=== PATIENT | male | born 1995 | race Caucasian/White ===

== ENCOUNTER 2016-09-15 22:26 | Emergency (ER) | payer OTHER ==
[~2016-09-15] VITALS: Ht 167.6 cm; Wt 54.5 kg
[2016-09-15 22:45] VITALS: BP 132/82; PULSE 94; RESP 19; O2SAT 98
--- NOTE | 2016-09-15 23:13 | ED.REPORT ---
HPI-Seizure Date of Service Sep 15, 2016 ED Provider: Frankie Lowery MD 20 year old male with a history of substance abuse (heroin, methamphetamine), panic disorder, anxiety, and sleep disorder presents to the ER via EMS accompanied by his parents and brother due to a witnessed tonic clonic breakthrough seizure lasting approximately 1 minute. Mother reports that the patient came in the house after a hard day, sat down on the couch and promptly went rigid, convulsed, and was foaming at the mouth. He denies urinary incontinence, tongue biting, and any loss of bodily function since the episode. Patient has been on Zoloft for 2-3 months, but has been noncompliant for the past 5 days before resuming medication today. 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 Nursing Notes Stated Complaint: SEIZURE Chief Complaint: Seizure Nursing Notes Reviewed: Yes Allergies: Coded Allergies: No Known Allergies (Unverified , 09/15/16) General Time Seen by Provider: 22:55 Chief Complaint Chief Complaint: Seizure, generalized Hx Obtained From: Patient, Other family... (Mother) Arrived By: Ambulance Onset Occurred: Just prior to arrival Progression Since Onset: Rapidly improving Associated with: Reports: Confusion post-seizure, Denies: Tongue biting Pertinent Negative: Pt denies other symptoms Related History: Denies: Known seizure disorder Similar Sx Previous: No Risk-Seizure Sofy Coma Score > Age 5 Eye Opening: Open spontaneously (4) Verbal Response: Oriented (5) Motor Response: Obeys commands (6) Smyer Coma Score: 15 Past Medical History Past Medical History Anxiety Panic disorder Generalized sleep disorder Smoking History Unknown if Ever Smoker Social History Alcohol Use: In recovery Drug Use: Meth, Other (Heroin) Other Social History: Good social support Ambulatory Status Independent Review of Systems Review of Systems Note: +foaming at the mouth Neurologic: Reports: Confusion, Seizure, Denies: Bladder dysfunction, Bowel dysfunction, Focal weakness, Numbness, Weakness Complete sys rev & neg: except as marked. Physical Exam Initial Vital Signs Vital Signs (First) Date Time Temp Pulse Resp B/P Pulse Ox O2 Delivery O2 Flow Rate FiO2 09/15/16 22:45 94 19 132/82 98 Room Air Initial VS: Reviewed Head / Eyes: Atraumatic, Normocephalic, PERRL Abdomen / GI: Soft, Non-tender, No guarding, No rebound, No distention Extremities: Vascular intact, Neuro intact, No swelling, No tenderness Skin: Warm, Dry, No cyanosis Psychiatric: Mood/affect normal, Behavior normal, Normal thought content General/Constitutional: Awake, Alert, Well developed, Well nourished Neck: Supple, No meningismus, Full range of motion, No swelling, Non-tender Respiratory / Chest: Breath sounds NL, Breath sounds = bilat, No respiratory distress, No rales, No rhonchi, No wheezing Cardiovascular: Heart rate NL, Regular rhythm, Heart sounds NL, Peripheral circulation NL Neurologic: Oriented X3, Speech NL, No motor deficits, No sensory deficits, CN II - XII intact ENT: Atraumatic, Airway patent, Mucous membranes moist, Pharynx NL, Gums/ dentition NL Interpretation & Diagnostics Lab Results Interpretation Result Diagram: 09/15/16 2335 09/15/16 2335 Test 09/15/16 23:05 09/15/16 23:35 Urine Color Straw (YELLOW) Urine Appearance Hazy (CLEAR,HAZY) Urine pH 7.5 (5.0-8.0) Urine Specific [place] 1.015 (1.003-1.035) Urine Protein Negativemg/dL (NEG,TRACE) Urine Glucose (UA) Negativemg/dL (NEGATIVE) Urine Ketones Negativemg/dL (NEGATIVE) Urine Occult Blood Negative (NEGATIVE) Urine Nitrite Negative (NEGATIVE) Urine Bilirubin Negative (NEGATIVE) Urine Urobilinogen Normalmg/dL (NORMAL) Urine Leukocyte Esterase Negative (NEGATIVE) Urine RBC 0-2/hpf (0-2) Urine WBC 0-5/hpf (0-5) Urine Epithelial Cells Occasional/hpf (NONE-MOD) Urine Crystals Amorphous phosphates Urine Bacteria Few/hpf (NONE-FEW) Urine Hyaline Casts None/lpf (NONE) Urine Granular Casts None seen (NONE SEEN) Urine Waxy Casts None seen (NONE SEEN) Urine Red Blood Cell Casts None seen (NONE SEEN) Urine White Blood Cell Casts None seen (NONE SEEN) Urine Mucus None seen (None Seen) Urine Trichomonas None seen (NONE SEEN) Urine Yeast None (NONE SEEN) Urinalysis Comment None Urine Opiates Screen Negative Urine Methadone Screen Negative Urine Barbiturates Screen Negative Urine Amphetamines Screen Negative Urine Benzodiazepines Screen Negative Urine Cocaine Metabolite Screen Negative Urine Cannabinoids Screen Positive White Blood Count 14.2th/mm3 (3.8-10.1) Red Blood Count 4.38mil/mm3 (4.40-5.80) Hemoglobin 13.2g/dL (13.8-17.2) Hematocrit 37.7% (41.0-50.0) Mean Corpuscular Volume 86.1fL (81-100) Mean Corpuscular Hemoglobin 30.1pg (27.0-35.0) Mean Corpuscular Hemoglobin Concent 35.0% (32.0-37.0) Red Cell Distribution Width 12.4% (12.3-15.4) Platelet Count 251bil/L (150-400) Neutrophils (%) (Auto) 75.6% (40-74) Lymphocytes (%) (Auto) 17.8% (14-46) Monocytes (%) (Auto) 6.0% (4-12) Eosinophils (%) (Auto) 0.1% (0-5) Basophils (%) (Auto) 0.1% (0-3) Sodium Level 140mEq/L (134-144) Potassium Level 3.7mEq/L (3.5-5.2) Chloride Level 104mEq/L (97-108) Carbon Dioxide Level 19mmol/L (18-29) Blood Urea Nitrogen 13mg/dL (6-20) Creatinine 0.64mg/dL (0.76-1.27) Estimat Glomerular Filtration Rate 171mL/min (>59) Glucose Level 86mg/dL (60-99) Calcium Level 8.2mg/dL (8.5-10.1) Magnesium Level 1.9mg/dL (1.6-2.6) Total Bilirubin 0.2mg/dL (0.0-1.2) Aspartate Amino Transf (AST/SGOT) 39U/L (0-50) Alanine Aminotransferase (ALT/SGPT) 45U/L (0-44) Alkaline Phosphatase 65U/L (25-150) Total Protein 7.4g/dL (6.4-8.4) Albumin 4.2g/dL (3.4-5.0) Hold Rosenbaum Top Tube Received (Received) Alcohols < 10mg/dL (0-10) X-Ray Chest Interpretation Chest Xray Interpretation: Negative. View: Portable, 1 view Interpretation / Wet Read by: Wet read ED physician CT Head Interpretation CONCLUSION: Normal CT of the head without contrast. Electronically signed by Mathew Barton MD Study: Head CT no contrast Interpretation / Wet Read by: Interpret - Radiologist Re-Eval/Medical Decision Med Decision/Clinical Course 20-year-old with first onset seizure. He has a history of drug abuse but no recent use. His only acknowledged drug in use is THC. His CT is negative lites etc. are basically unremarkable. He is mildly hypocalcemic of no significance. An tox is only positive for THC. He is advised directly and in the presence of his parents that he must not drive until cleared. No indication for antiseizure meds after a single episode at this point. He needs an EEG and an MRI, to be arranged by his PCP. Prompt return if repetitive. Warned strongly against using street drugs, especially in the context. Discharged in stable condition. Re-Evaluation/Progress : Time of Eval: 00:43 Re-Evaluation/Progress Note: Discussed lab and imaging results and plan to discharge. Patient is amenable to the plan. Return precautions given. All other questions addressed. Counseled Regarding: Diagnosis, Lab results, Need for follow-up, When/why to return to ED Discharge & Departure Impression: Primary Impression: Seizure Disposition: Home Discharge Condition All VS Reviewed: Yes Condition: Stable Patient Instructions: Epilepsy (DC) Additional Instructions: You have had a single seizure episode that appears to be a tonic-clonic seizure , and may be epilepsy. We have not identified a specific cause. What we can tell you, is that your CT scan is negative, and your blood work is not remarkable. He will need an electroencephalogram. Do not drive until you have received a definitive diagnosis and/or cleared by neurology. He will need to establish with a primary care physician. Follow-up with neurology at the number provided to arrange a electroencephalogram. Return to the ER if you have recurrent seizures, loss of consciousness, numbness /tingling, chest pain, shortness of breath, or any other concerning symptoms. Referrals: [facility] Ruel,Jerson Raymond MD Scribe Attestation Portions of this note were transcribed by Dylan Altamirano. I, Dr. Lowery, personally performed the history, physical exam and medical decision-making; I reviewed and confirmed the accuracy of the information in the transcribed note. Signed by: Marino Vázquez. 09/16/2016 - 00:43 copies to: [facility]; Jerson Lipscomb MD, Christopher W MD Sep 15, 2016 23:13 DYLAN ALTAMIRANO Sep 15, 2016 23:26
[2016-09-15 23:22] LABS: APPEARANCE,URINE HAZY (CLEAR,HAZY); COLOR,URINE STRAW (YELLOW); OCCULT BLOOD,URINE NEGATIVE (NEGATIVE); PH,URINE 7.5 (5.0-8.0); UROBILINOGEN,URINE NORMAL (NORMAL)
[2016-09-15 23:46] LABS: BASOPHILS % (AUTO) 0.1 % (0-3); EOSINOPHILS % (AUTO) 0.1 % (0-5); Mean Corpuscular Hemoglobin 30.1 pg (27.0-35.0); Mean Corpuscular Volume 86.1 fL (81-100); NEUTROPHILS % (AUTO) 75.6 % (40-74); Platelet Count 251 bil/L (150-400)
[2016-09-16 00:08] VITALS: BP 122/67; PULSE 86; RESP 14; O2SAT 95
[2016-09-16 00:12] LABS: Magnesium 1.9 mg/dL (1.6-2.6)
[2016-09-16 01:01] VITALS: BP 115/63; PULSE 86; RESP 17; O2SAT 100
--- NOTE | 2016-09-16 08:16 | DRSVH ---
PROCEDURE: CT BRAIN WITHOUT CONTRAST ([id number]) INDICATIONS: new onset seizure TECHNIQUE: Noncontrast 4.5 mm thick angled axial sections acquired from the foramen magnum to the vertex, with c oronal reformats. COMPARISON: None. FINDINGS: Image quality: Excellent. CSF spaces: Basal cisterns are patent. No extra-axial fluid collections. Ventricles are normal in size and shape. Brain: No midline shift. No intracranial masses or hemorrhage. Palomo-white matter interface is norm al. Skull and face: Calvarium and visualized facial bones are intact, without suspicious lesions. Sinuses: Visualized sinuses and mastoids are clear. IMPRESSION: Negative head CT. No significant discrepancy with the machinist 2nd shift radiology preliminary report. Dictated by: Seferino Roque M.D. on 09/16/2016 at 8:15 Approved by: Seferino Roque M.D. on 09/16/2016 at 8:16
--- NOTE | 2016-09-16 08:43 | DRSVH ---
PROCEDURE: X-RAY CHEST ONE VIEW, PORTABLE ([id number]) INDICATIONS: seizure TECHNIQUE: One view of the chest was acquired. COMPARISON: None. FINDINGS: Surgical changes and devices: None. Lungs and pleura: No pleural effusions or pneumothorax. Lungs are clear. Mediastinum: Mediastinal contours appear normal. Heart size is normal. Bones and chest wall: No suspicious bony lesions. Overlying soft tissues appear unremarkable. IMPRESSION: No acute cardiopulmonary disease. Dictated by: Juan Dawkins [facility] Interpreted: Love Patten MD on 09/16/2016 at 8:42 Transcribed by: DAVID on 09/16/2016 at 8:43 Approved by: Love Patten MD, PhD on 09/16/2016 at 12:50
== END 2016-09-16 00:59 | disposition home or self-care (01) ==
LOC: SED 22:26 → EDBD 22:26 → SED 09-16 00:59
DX: R56.9 Unspecified convulsions (principal)
CPT/HCPCS: 36415; 70450; 71010; 80053; 81001; 81002; 83735; 85025; 96374; 99285; G0480; J1885